=== PATIENT | female | born 1945 | race American Indian/Alaskan Native ===

== ENCOUNTER 2016-07-26 14:07 | Outpatient (CLI) | payer OTHER, MEDICARE ==
--- NOTE | 2016-07-27 10:32 | Mammography Report ---
Bilateral diagnostic mammogram and spot magnification view of density upper inner right breast and sonogram of ill-defined density upper outer left breast: Compared to 11/17/15. CAD study utilized. Findings: There is effacement noted of the ill-defined density upper inner right breast on spot magnification views. No mass or microcalcification is seen. Sonographic examination is a followup of density upper outer left breast reveals no significant interval change in size and configuration of the mass. The echogenicity also appears similar to previous study. Impression: Benign findings. Annual followup recommended. BI-RADS CATEGORY: 2 = Benign ACR BI-RADS MAMMOGRAPHIC CODES: 0 = Needs additional imaging evaluation; 1 = Negative; 2 = Benign; 3 = Probably benign; 4 = Suspicious; 5 = Malignant; 6 = Known biopsy-proven malignancy COMMENT: 1. Dense breast tissue, i.e., adenosis, fibrocystic changes, etc., may obscure an underlying neoplasm. 2. Approximately 10% of cancers are not detected with mammography. 3. A negative mammography report should not delay biopsy if a clinically suspicious mass is present. COMMENT: Patient follow-up letters are generated in [employer].
== END 2016-07-26 14:08 | disposition home or self-care (01) ==
LOC: MAMMO 14:07
PROVIDERS: ATTEND Internal Medicine
DX: N63 Unspecified lump in breast (principal); R92.8 Other abnormal and inconclusive findings on diagnostic imaging of breast
CPT/HCPCS: 76642; G0204; 77066

== ENCOUNTER 2016-07-30 14:45 | Outpatient (CLI) | payer OTHER, MEDICARE | END 2016-07-30 14:46 | disposition home or self-care (01) | LOC: LABHHL 14:45 | PROVIDERS: ATTEND Surgery | DX: N63 Unspecified lump in breast (principal) | CPT/HCPCS: 88305 ==

== ENCOUNTER 2016-08-11 10:06 | Outpatient (CLI) | payer OTHER, MEDICARE ==
--- NOTE | 2016-08-11 13:44 | Ultrasound Report ---
LEFT AXILLARY ULTRASOUND: 08/11/16 10:06:00 CLINICAL: Newly diagnosed left breast cancer. COMPARISON: None. FINDINGS: Ultrasound of the left axilla was performed and demonstrated a single lymph node with central fat a benign morphology measuring 1.1 x 0.4 x 1.1 cm. No suspicious lymph node. IMPRESSION: No suspicious lymph nodes. A single benign appearing left axillary lymph node.
--- NOTE | 2016-08-11 16:22 | Magnetic Resonance Report ---
BILATERAL BREAST MRI WITHOUT AND WITH CONTRAST: 08/11/16 10:06:00 CLINICAL: Newly diagnosed left breast cancer. Status post left ultrasound-guided needle biopsy on 07/30/16 with pathologic diagnosis of invasive lobular carcinoma, Musella grade 1/3. COMPARISON:07/26/16 bilateral mammogram and bilateral breast ultrasound.. TECHNIQUE: Axial 1.0-mm T1 without, axial high resolution 2.0-mm T2 and axial 1.0-mm dynamic Vibrant high-resolution postcontrast T1 fat saturation sequences on a 1.5 Loraine magnet. The examination was performed with an 8 channel dedicated Sentinelle breast coil. Post processing with CAD and subtraction was performed on an [employer] workstation. 20 cc of Multihance was injected without incident for the contrast portion of the exam. Consent was obtained prior to the administration of the contrast. FINDINGS: Right: Mild background parenchymal enhancement. A circumscribed enhancing nodule versus intramammary lymph node at 6 o'clock 4.6 cm from the nipple measures 2.7 x 1.7 x 1.4 mm. It demonstrates marked peak enhancement at 431% and 100% type III washout. There is no mammographic correlate. No other mass or suspicious enhancement of the right breast. No suspicious right axillary or right internal mammary lymph nodes. Left: Mild background parenchymal enhancement. The newly diagnosed cancer is an irregular enhancing mass in the upper breast at 11 o'clock-12 o'clock. It measures 2.8 x 2.0 x 1.5 cm and demonstrates heterogeneous enhancement with 448% peak enhancement and 11 are present type III washout. The predominant pattern is 57% type I persistent waveform. No other mass or suspicious enhancement of the left breast. No suspicious left axillary lymph nodes. A single normal size left axillary lymph node has central fat and benign morphology. IMPRESSION: Known left breast cancer and one suspicious 2.8 mm right breast nodule. This lesion of the right breast is suspicious based on its enhancement characteristics. However, it is too small to biopsy with MRI guidance. Since there is no mammographic correlate, recommend a targeted right breast ultrasound to determine if there correlating lesion to biopsy with ultrasound. RIGHT BI-RADS 4 -- Suspicious LEFT BI-RADS 6 -- Known Cancer
== END 2016-08-11 10:07 | disposition home or self-care (01) ==
LOC: SPVIMAG 10:06
PROVIDERS: ATTEND Surgery
DX: C50.912 Malignant neoplasm of unspecified site of left female breast (principal); N63 Unspecified lump in breast
CPT/HCPCS: 0159T; 76642; 82962; A9577; C8908; 77059

== ENCOUNTER 2016-08-17 12:06 | Outpatient (CLI) | payer OTHER, MEDICARE ==
--- NOTE | 2016-08-17 12:50 | Ultrasound Report ---
Sonogram right breast to detect 2.7 x 1.7 x 1.4 mm lesion seen on MRI study at 6:00 position 4 cm from nipple. Suspected malignancy. Findings: No cystic or solid masses identified. No abnormal breast parenchymal pattern noted. Impression: Probable benign lesion, malignancy cannot be excluded. Three-month followup examination with MRI scan may be recommended followed by ultrasound if needed.
== END 2016-08-17 12:07 | disposition home or self-care (01) ==
LOC: SPVWC 12:06
PROVIDERS: ATTEND Surgery
DX: C50.911 Malignant neoplasm of unspecified site of right female breast (principal); F17.200 Nicotine dependence, unspecified, uncomplicated

== ENCOUNTER 2016-09-08 06:25 | Day surgery (SDC) | payer OTHER, MEDICARE ==
[2016-09-06 11:17] LABS: Basophils % (Auto) 0.5 % (0.0-1.8); Eosinophils % (Auto) 0.6 % (0.0-4.3); Hematocrit 40.2 % (30.3-42.9); Hemoglobin 13.6 gm/dl (10.1-14.3); Mean Corpuscular HGB Conc 34 % (30-34); Mean Corpuscular Hemoglobin 31 pg (28-32); Mean Corpuscular Volume 92 fl (79-97); Platelet Count 236 K/mm3 (140-440); Red Blood Count 4.37 M/mm3 (3.65-5.03); White Blood Count 7.1 K/mm3 (4.5-11.0)
--- NOTE | 2016-09-06 11:18 | Anesthesia Consultation ---
Anesthesia Consult and Med Hx Date of service: 09/06/16 - Airway Anesthetic Teeth Evaluation: Dentures, Partials ROM Head & Neck: Adequate Mental/Hyoid Distance: Adequate Mallampati Class: Class II Intubation Access Assessment: Probably Good - Pulmonary Exam CTA: Yes - Cardiac Exam Cardiac Exam: RRR - Pre-Operative Health Status ASA Pre-Surgery Classification: ASA3 Proposed Anesthetic Plan: General - Pulmonary Hx Smoking: Yes (CIGARETTES 1/2 PPD X 42 YRS) Hx Asthma: No COPD: No Hx Sleep Apnea: No - Cardiovascular System Hx Hypertension: Yes (FOR 6 MTHS, DR. HEIKE GARCIA - PCP) Hx Coronary Artery Disease: No Hx Heart Attack/AMI: No Hx Heart Murmur: Yes - Central Nervous System Hx Seizures: No CVA: No Hx Psychiatric Problems: No - Endocrine Hx Renal Disease: No Hx Cirrhosis: No Hx Insulin Dependent Diabetes: No Hx Thyroid Disease: Yes (THYROID NODULE REMOVED) - Hematic Hx Sickle Cell Disease: No (TRAIT) - Other Systems Hx Cancer: Yes (LEFT BREAST, DX: 07/2016) - Additional Comments Anesthesia Medical History Comments: PATIENT WENT INTO CARDIAC ARREST DURING NERVE BLOCK? FOR SHOULDER SURGERY IN 2005. SHE HAS SINCE HAD SURGERY WITH NO PROBLEMS. SHE HAS NEVER HAD A CARDIAC WORKUP FOR THIS AND SAYS SHE WILL NOT GET CLEARANCE BEFORE HER PARTIAL MASTECTOMY.
[2016-09-06 11:37] LABS: Alanine Aminotransferase 12 units/L (7-56); Albumin 4.5 g/dL (3.9-5); Albumin/Globulin Ratio 1.8 %; Alkaline Phosphatase 67 units/L (35-129); Anion Gap 17 mmol/L; Blood Urea Nitrogen 10 mg/dL (7-17); Calcium 9.2 mg/dL (8.4-10.2); Carbon Dioxide 25 mmol/L (22-30); Chloride 104.7 mmol/L (98-107); Glucose 91 mg/dL (65-100); Potassium 4.1 mmol/L (3.6-5.0); Sodium 143 mmol/L (137-145)
[~2016-09-08 06:25] MED LIST: PEPCID PO NR; VERSED IV NR
[2016-09-08] MEDS ORDERED: DILAUDID ONE (06:44)
[2016-09-08] MEDS ORDERED: DIPRIVAN 10 MG/ML IV ONE (06:44)
[2016-09-08] MEDS ORDERED: XYLOCAINE MPF 2% ONE (06:47)
[2016-09-08] MEDS ORDERED: NACL 0.9% 1000 ML 1,000 ML ONE (06:47)
[2016-09-08] MEDS ORDERED: NACL BACTERIOSTATIC INFILTRATI ONE (06:48)
--- NOTE | 2016-09-08 07:02 | Anesthesia Day of Surgery ---
Anesthesia Day of Surgery - Day of Surgery Patient Examined: Yes Patient H&P Reviewed: Yes Patient is NPO: Yes
[2016-09-08] MEDS ORDERED: XYLOCAINE 1% 20 mL ONE ×2 (07:03→07:25)
[2016-09-08] MEDS ORDERED: MARCAINE 0.25% INFILTRATI ONE (07:04)
[2016-09-08] MEDS ORDERED: NEURONTIN ONE (07:25)
[2016-09-08] MEDS ORDERED: DECADRON ONE ×2 (07:25→09:03)
[2016-09-08] MEDS ORDERED: MARCAINE-EPI/PF 0.5%-1:200,000 INFILTRATI ONE ×3 (07:26→10:30)
[2016-09-08] MEDS ORDERED: CLONIDINE 1,000 MCG/10 ML VIAL EP ONE (07:27)
[2016-09-08] MEDS ORDERED: ZOFRAN ONE (09:03)
[2016-09-08] MEDS ORDERED: ANCEF/STERILE WATER 2 GM/20 ML IV NR (10:00)
[2016-09-08] MEDS ORDERED: DECADRON IV ONE (10:30)
[2016-09-08] MEDS ORDERED: NEURONTIN PO NR (10:30)
[2016-09-08] MEDS ORDERED: WATER FOR IRRIG STERILE IR ONE (10:56)
--- NOTE | 2016-09-08 11:24 | Short Stay Summary ---
Short Stay Documentation Date of service: 09/08/16 - History H&P: obtained from office - Allergies and Medications Current Medications: Allergies No Known Allergies Allergy (Unverified 08/17/14 17:01) Home Medications Medication Instructions Recorded Confirmed Last Taken Type amLODIPine [Norvasc] 5 mg PO DAILY 08/31/16 09/08/16 09/07/16 06:00 History Aspirin [Adult Low Dose Aspirin EC] 81 mg PO DAILY 09/08/16 09/08/16 09/06/16 06 :00 History HYDROcodone/APAP 5-325 [Ogden 1 each PO Q6HR PRN #30 tablet 09/08/16 Unknown Rx 5/325] Active Medications Cefazolin Sodium (Ancef/Sterile Water 2 Gm/20 Ml) 2 gm IV PREOP NR Stop: 09/08/16 12:00 Celecoxib (Celebrex) 200 mg PO PREOP NR Stop: 09/08/16 12:00 Famotidine (Pepcid) 20 mg PO PREOP NR Stop: 09/08/16 23:00 Last Admin: 09/08/16 07:15 Dose: 20 mg Sodium Chloride (Nacl 0.9% 1000 Ml) 1,000 mls @ 75 mls/hr IV DIRECT PERLITA Midazolam HCl (Versed) 2 mg IV PREOP NR Stop: 09/08/16 23:59 Last Admin: 09/08/16 07:35 Dose: 2 mg - Brief post op/procedure progress note Date of procedure: 09/08/16 Pre-op diagnosis: Left breast cancer of the upper outer quadrant Post-op diagnosis: same Procedure: Left breast partial mastectomy with SLNB Anesthesia: GETA Findings: Radiograph specimen of left partial mastectomy with clip and mass present; 3 SLNs identified Surgeon: HUGH MONTERROSO Estimated blood loss: minimal Pathology: list (left partial mastectomy and SLNB) Specimen disposition: to lab Condition: stable - Disposition Condition at discharge: Good Disposition: DC-01 TO HOME OR SELFCARE Short Stay Discharge Plan Activity: other (no heavy lifting) Diet: regular Wound: other (keep incision clean and dry and may shower in 24 hours; no baths, pools or lakes; do not rub scrub or scrub incision) Follow up with: PRESTON MCKINLEY MD [Primary Care Provider] - 7 Days HUGH MONTERROSO MD [Staff Physician] - 7 Days Prescriptions: HYDROcodone/APAP 5-325 [Ogden 5/325] 1 each PO Q6HR PRN #30 tablet PRN Reason: Pain
--- NOTE | 2016-09-08 11:33 | Mammography Report ---
Operative specimen mammogram: A single tissue specimen is submitted that includes a biopsy marker. No other findings.
--- NOTE | 2016-09-08 11:34 | Operative Report ---
Operative Report Operative Report: Date of procedure: 09/08/2016 Pre-operative diagnosis: Left breast cancer of the upper outer quadrant Post-operative diagnosis: Same Procedure name(s): Ultrasound guided left partial mastectomy and sentinel lymph node biopsy Surgeon: Kellee Hanks M.D. Anesthesia: Gen. Findings: Known left breast cancer at the 12 o'clock position about 4 cm from the nipple with ultrasound guided partial mastectomy performed and 3 sentinel lymph nodes identified. Radiographs specimen of partial mastectomy with clip and mass present Complications: None Drains: None Disposition: PACU in good condition Indications for operative procedure: This is a 71-year-old -[place] lady with newly diagnosed stage I left breast cancer of the upper outer quadrant. Recommendations were to proceed with a left partial mastectomy and sentinel lymph node biopsy. Patient wished to proceed with the above procedure. Procedure in detail: Anesthesia placed left pectoral muscle block. The patient was taken to the operating room and was laid supine. Gen. anesthesia was administered. The left breast and axilla were prepped and draped in the normal sterile operative fashion. The nipple was injected with radioisotope. Timeout was performed. Gamma probe was inserted into the axilla with sentinel lymph node location identified. A skin incision was made in the axilla with a 15 blade knife with dissection taken down to the subcutaneous tissues. First began with opening the axillary fascia. The gamma probe was inserted into the axilla with 3 sentinel lymph nodes identified and appropriately dissected free and sent to pathology for permanent. Hemostasis was noted. Axillary cavity was irrigated and suctioned. Axillary fascia was approximated and closed using interrupted 3-0 Vicryl and the skin closed using a running 4-0 Monocryl and skin affix. Attention was then taken towards the left breast. Ultrasound was used to yaima the area of known breast cancer at the 12 o'clock position 4 cm from the nipple. Skin incision was made with a 15 blade knife with dissection taken down to the subcutaneous tissues. First began raising of the superior flap followed by raising of the lateral, inferior and medial flap with dissection taken down posteriorly to the pectoralis muscle. Breast specimen was then removed from the pectoralis muscle without incident. Ultrasound was then used to identify the area with mass and clip present with some concerns for the most anterior margin being close to cancer and then proceeded with removal of the skin that was anterior to location of the known breast cancer-newly revised margin being skin as the most anterior margin. This was then sent to pathology after appropriately marked. Hemostasis was obtained with Bovie cautery. Radiograph specimen with clip and mass present. Then proceed with oncoplastic closure to ensure cosmesis. Breast defect was 7 cm. Breast tissue was appropriately mobilized and approximated and then closed with interrupted 3-0 Vicryl and skin closed using a running 4-0 Monocryl and skin affix. This concluded the procedure. She tolerated surgery very well and was awakened from anesthesia without any complications and transported PACU in good condition.
[2016-09-08] MEDS ORDERED: NACL 0.9% 1000 ML 1,000 ML IV SCH (12:00)
[2016-09-08] MEDS ORDERED: ZOFRAN IV ONE (14:24)
[2016-09-08 15:12] VITALS: BP 134/62
== END 2016-09-08 14:45 | disposition home or self-care (01) ==
LOC: OR 06:25
PROVIDERS: ATTEND Surgery
DX: C50.412 Malignant neoplasm of upper-outer quadrant of left female breast (principal); I10 Essential (primary) hypertension; J44.9 Chronic obstructive pulmonary disease, unspecified; F17.210 Nicotine dependence, cigarettes, uncomplicated; Z98.890 Other specified postprocedural states; Z79.899 Other long term (current) drug therapy; Z80.3 Family history of malignant neoplasm of breast
CPT/HCPCS: 19301; 36415; 38525; 64450; 76098; 78800; 80053; 85025; 88305; 88307; A9541; J0690; J0735; J1100; J1170; J2250; J2405; J2704; J7030

== ENCOUNTER 2016-12-14 09:44 | Outpatient (CLI) | payer OTHER, MEDICARE ==
--- NOTE | 2016-12-14 12:35 | Mammography Report ---
BONE DENSITY STUDY: DEFINITIONS: BMD = Bone Mineral Density T-score = BMD related to mean peak bone mass of young adult (mean expressed in Standard Deviation) Z-score = Age matched BMD expressed in SD World Health Organization (WHO) Diagnostic Criteria Normal T-score > -1 SD Osteopenia T-score between -1 and -2.4 SD Osteoporosis T-score -2.5 SD or below FINDINGS: The weighted average BMD of lumbar spine L1-L4 is 1.010 with a T-score of -1.3. The weighted average BMD of hip is 0.936 with a T-score of -0.6. IMPRESSION: The patient's T-score is diagnostic for osteopenia and average relative risk for fracture. NOTE: BMD is not the only risk factor for fracture; also consider factors such as the patient's age, risk of falling, previous osteoporotic fracture, family history of osteoporotic fractures, current smoker, and low body weight. Wilson's triangle is a region of interest in femur, predominantly of trabecular bone. It is not a true anatomic site, and [facility] does not recommend its use clinically.
== END 2016-12-14 09:45 | disposition home or self-care (01) ==
LOC: SPVWC 09:44
PROVIDERS: ATTEND Internal Medicine Hematology & Oncology
DX: M85.88 Other specified disorders of bone density and structure, other site (principal); C50.919 Malignant neoplasm of unspecified site of unspecified female breast
CPT/HCPCS: 77080